=== PATIENT | male | born 2000 | race Hispanic/Latino ===

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

== ENCOUNTER 2020-02-28 16:16 | Emergency (ER) | payer OTHER ==
--- OUTSIDE RECORDS SUMMARY | 2020-02-28 16:17 | XMS REPORT | Continuity of Care Document ---
:2000 Author Organization [facility] t Address [address] [place] [address] Care Team Providers Name Role Phone Sabiha [...] Date/Time Type Type Clinicians Facility Department ID 2019-08-23 2019-08-23 Telephone PATT Landis [id number] [id number] 00:00:00 00:00:00 Silvano Coleman [id number] [facility] [id number] [facility] [id number] BLDG. 144 2019-08-22 2019-08-22 Nurse Sabiha VAMARCO [id number] 00:00:00 00:00:00 Triage Silvano HILARIO [id number] [facility] [id number] 144 2019-08-21 2019-08-21 Refill PATT Landis [id number] 00:00:00 00:00:00 Silvano Coleman [id number] [facility] [id number] [facility] [phone] BLDG. 144 2019-08-19 2019-08-19 Nurse IVONNE Estevez [id number] 00:00:00 00:00:00 Triage Madyson PRASAD [id number] [facility] [id number] 2019-08-18 2019-08-18 Hospital Liane Landis [id number] 05:28:51 10:33:00 Encounter Silvano Prasad [id number] [facility] [id number] 2019-08-18 2019-08-18 Orders Doctor IVONNE [id number] 00:00:00 00:00:00 Only UnassignedOSMAR [id number] [facility] [id number] 2019-08-16 2019-08-16 Laboratory Only, [facility] [id number] 14:44:03 14:59:03 Only Test [place] [id number] [place] [id number] [facility] [id number] [address] 2019-08-02 2019-08-02 Telephone Sabiha VAMARCO [id number] 00:00:00 00:00:00 Silvano HILARIO [id number] [facility] [id number] 144 Results This patient has no known results.
[2020-02-28] MEDS ORDERED: metroNIDAZOLE 500 MG TABLET ONE (19:57)
[2020-02-28] MEDS ORDERED: AZITHROMYCIN 250 MG TAB ONE (19:57)
[2020-02-28] MEDS ORDERED: CEFTRIAXONE 250 MG/VIAL ONE (19:58)
[2020-02-28] MEDS ORDERED: WATER FOR INJ,STERILE 10 ML ONE (19:58)
--- NOTE | 2020-02-28 20:36 | ER ---
Nurse's Notes [facility] Name: Rodo Nielson Age: 19 yrs Sex: Male : 2000 Arrival Date: 02/28/2020 Time: 16:18 Bed 23 Private MD: Diagnosis: Groin Pain;Sexually Transmitted Disease Exposure Presentation: 02/27 16:26 Chief complaint: Patient states: I wanted to get checked for STD, Chlamydia. I got L ca1 inguinal pain, LLQ pain. Denies burning with urination, urgency and frequency. Denies penile discharge. The person I had sex with told me she had Chlamydia months ago, I don't know if she has it now. And my throat on the R side is also hurting and itching, but I had m tonsils removed already. Denies fever. Coronavirus screen: Client denies travel out of the [place] in the last 14 days. At this time, the client does not indicate any symptoms associated with coronavirus-19. Ebola Screen: Patient negative for fever greater than or equal to 101.5 degrees Fahrenheit, and additional compatible Ebola Virus Disease symptoms Patient denies exposure to infectious person. Patient denies travel to an Ebola-affected area in the 21 days before illness onset. No symptoms or risks identified at this time. Initial Sepsis Screen: Does the patient meet any 2 criteria? No. Patient's initial sepsis screen is negative. Does the patient have a suspected source of infection? No. Patient's initial sepsis screen is negative. Risk Assessment: Do you want to hurt yourself or someone else? Patient reports no desire to harm self or others. Onset of symptoms was February 28, 2020. 16:26 Method Of Arrival: Ambulatory ca1 16:26 Acuity: JESUS 4 ca1 Triage Assessment: 19:40 General: Appears in no apparent distress. Behavior is calm, cooperative. Pain: Denies dm5 pain. Neuro: Level of Consciousness is awake, alert, obeys commands, Oriented to person, place, time, situation. Cardiovascular: No deficits noted. Respiratory: No deficits noted. GI: No deficits noted. No signs and/or symptoms were reported involving the gastrointestinal system. : Reports concern of STD. Derm: Skin is pink, warm \T\ dry. Historical: - Allergies: 16:33 No Known Allergies; ca1 - Home Meds: 16:33 None [Active]; ca1 - PMHx: 16:33 seasonal allergies; ca1 - PSHx: 16:33 Tonsillectomy; ca1 - Immunization history:: Adult Immunizations up to date, Flu vaccine is not up to date. - Social history:: Smoking status: Reported history of juuling and/or vaping. Smoking status: Patient uses street drugs, marijuana. Screenin:00 Abuse screen: Denies threats or abuse. Denies injuries from another. Nutritional dm5 screening: No deficits noted. Tuberculosis screening: No symptoms or risk factors identified. Fall Risk None identified. Assessment: 20:00 Reassessment: Patient appears in no apparent distress at this time. Patient and/or dm5 family updated on plan of care and expected duration. Pain level reassessed. Patient is alert, oriented x 3, equal unlabored respirations, skin warm/dry/pink. Vital Signs: 16:26 BP 114 / 79; Pulse 79; Resp 18 S; Temp 97.3(TE); Pulse Ox 100% on R/A; Weight 66.68 kg ca1 (R); Height 6 ft. 1 in. (185.42 cm) (R); Pain 5/10; 16:26 Body Mass Index 19.39 (66.68 kg, 185.42 cm) ca1 ED Course: 16:18 Patient arrived in ED. ag5 16:32 Triage completed. ca1 16:33 Arm band placed on right wrist. ca1 19:21 Raheem Henry PA is PHCP. [facility] 19:21 Suman Frazier MD is Attending Physician. [facility] 19:37 Maddie Mancuso, RN is Primary Nurse. dm5 20:00 Patient has correct armband on for positive identification. dm5 20:00 No provider procedures requiring assistance completed. Patient did not have IV access dm5 during this emergency room visit. Administered Medications: 19:46 Drug: Flagyl 2 grams Route: PO; dm5 20:15 Follow up: Response: No adverse reaction dm5 19:51 Drug: AZITHromycin 1 grams Route: PO; dm5 21:50 Follow up: Response: No adverse reaction dm5 20:02 Drug: Rocephin (cefTRIAXone) 250 mg Route: IM; Site: left gluteus; dm5 20:30 Follow up: Response: No adverse reaction dm5 Outcome: 20:35 Discharge ordered by MD. hidalgo 20:54 Patient left the ED. arin 20:55 Discharged to home ambulatory. staci5 20:55 Condition: good 20:55 Discharge instructions given to patient, Instructed on discharge instructions, follow up and referral plans. safe sex practices, Demonstrated understanding of instructions, follow-up care. Signatures: Maddie Mancuso, RN RN [email or web address] Raheem Henry PA PA jmm Acob, Cheryl RN SIGRID [facility] Bower [facility]
--- NOTE | 2020-02-28 20:36 | EDPHYS ---
Physician Documentation [facility] Name: Rodo Nielson Age: 19 yrs Sex: Male : 2000 Arrival Date: 02/28/2020 Time: 16:18 Bed 23 Private MD: ED Physician Suman Frazier HPI: 02/27 19:28 This 19 yrs old Male presents to ER via Ambulatory with complaints of Possible jmm STD. 19:28 The patient presents with tenderness, that is mild, of the left inguinal area. Onset: jmm The symptoms/episode began/occurred gradually. Modifying factors: The symptoms are alleviated by nothing, the symptoms are aggravated by nothing. This is a 19 year old male with no chronic medical conditions that presents to the ED with complaints of left groin pain beginning approx 3 days ago. Denies scrotal pain, discharge of dysuria. Patient states having intercourse with someone recently diagnosed with chlamydia. Historical: - Allergies: 16:33 No Known Allergies; ca1 - Home Meds: 16:33 None [Active]; ca1 - PMHx: 16:33 seasonal allergies; ca1 - PSHx: 16:33 Tonsillectomy; ca1 - Immunization history:: Adult Immunizations up to date, Flu vaccine is not up to date. - Social history:: Smoking status: Reported history of juuling and/or vaping. Smoking status: Patient uses street drugs, marijuana. ROS: 19:28 Constitutional: Negative for fever, chills, and weight loss, Cardiovascular: Negative jmm for chest pain, palpitations, and edema, Respiratory: Negative for shortness of breath, cough, wheezing, and pleuritic chest pain. 19:28 Back: Negative for injury and pain. 19:28 MS/Extremity: Negative for injury and deformity, Skin: Negative for injury, rash, and discoloration, Neuro: Negative for headache, weakness, numbness, tingling, and seizure, Psych: Negative for depression, anxiety, suicide ideation, homicidal ideation, and hallucinations. 19:28 Abdomen/GI: Positive for groin pain. 19:28 : Positive for groin pain. 19:28 All other systems are negative. Exam: 19:28 Constitutional: This is a well developed, well nourished patient who is awake, alert, jmm and in no acute distress. Head/Face: atraumatic. Eyes: EOMI, no conjunctival erythema appreciated ENT: Moist Mucus Membranes Neck: Trachea midline, Supple Chest/axilla: Normal chest wall appearance and motion. Cardiovascular: Regular rate and rhythm. No edema appreciated Respiratory: Normal respirations, no respiratory distress appreciated 19:28 Skin: General appearance color normal MS/ Extremity: Moves all extremities, no obvious deformities appreciated, no edema noted to the lower extremities Neuro: Awake and alert, normal gait Psych: Behavior is normal, Mood is normal, Patient is cooperative and pleasant 19:28 Abdomen/GI: Inspection: abdomen appears normal, Bowel sounds: normal, Palpation: abdomen is soft and non-tender, in all quadrants. 19:28 : Male external genitalia: normal, no abrasion, no discharge, no erythema, no injury, no swelling, no tenderness, no evidence of ulceration, Sexual behavior: the patient is sexually active. Vital Signs: 16:26 BP 114 / 79; Pulse 79; Resp 18 S; Temp 97.3(TE); Pulse Ox 100% on R/A; Weight 66.68 kg ca1 (R); Height 6 ft. 1 in. (185.42 cm) (R); Pain 5/10; 16:26 Body Mass Index 19.39 (66.68 kg, 185.42 cm) ca1 MDM: 19:33 Patient medically screened. gwen 20:04 Data reviewed: vital signs, nurses notes. Counseling: I had a detailed discussion with gwen the patient and/or guardian regarding: the historical points, exam findings, and any diagnostic results supporting the discharge/admit diagnosis, the need for outpatient follow up, to return to the emergency department if symptoms worsen or persist or if there are any questions or concerns that arise at home. 12 19:27 Order name: Urine Dipstick--Ancillary (enter results) ds4 02/27 20:07 Order name: GC Probe dm5 Administered Medications: 19:46 Drug: Flagyl 2 grams Route: PO; dm5 20:15 Follow up: Response: No adverse reaction dm5 19:51 Drug: AZITHromycin 1 grams Route: PO; dm5 21:50 Follow up: Response: No adverse reaction dm5 20:02 Drug: Rocephin (cefTRIAXone) 250 mg Route: IM; Site: left gluteus; dm5 20:30 Follow up: Response: No adverse reaction dm5 Disposition: 02/28 03:28 Co-signature as Attending Physician, Suman Frazier MD. [email or web address] Disposition: 02/28/20 20:35 Discharged to Home. Impression: Groin Pain, Sexually Transmitted Disease Exposure. - Condition is Stable. - Discharge Instructions: Chlamydia, Male, Sexually Transmitted Disease. - Medication Reconciliation Form, Thank You Letter, Antibiotic Education, Prescription Opioid Use form. - Follow up: Private Physician; When: 2 - 3 days; Reason: Recheck today's complaints, Continuance of care, Re-evaluation by your physician. Signatures: Dispatcher [employer] [facility] Maddie Mancuso, RN RN dm5 Raheem Henry PA PA jm Pamela Syed RN SIGRID ca1 Suman Frazier MD MD 7 Corrections: (The following items were deleted from the chart) 02/27 19:35 19:34 GC Culture+BA.LAB.BRZ ordered. [facility] 20:54 20:35 02/28/2020 20:35 Discharged to Home. Impression: Groin Pain; Sexually Transmitted dm5 Disease Exposure. Condition is Stable. Forms are Medication Reconciliation Form, Thank You Letter, Antibiotic Education, Prescription Opioid Use. Follow up: Private Physician; When: 2 - 3 days; Reason: Recheck today's complaints, Continuance of care, Re-evaluation by your physician. gwen
[2020-02-28 23:22] LABS: Urine Blood NEGATIVE (NEG); Urine Glucose NEGATIVE (NEG); Urine Protein NEGATIVE (NEG)
[2020-03-02 20:29] LABS: C.trachomatis RNA,TMA Detected (Not Detected)
== END 2020-02-28 20:54 | disposition home or self-care (01) ==
LOC: ER 16:16
DX: Z20.2 Contact with and (suspected) exposure to infections with a predominantly sexual mode of transmission (principal); Z87.891 Personal history of nicotine dependence
CPT/HCPCS: 81003; 87590; 87490; J0696; 96372; 99283

== ENCOUNTER 2020-08-30 17:37 | Emergency (ER) | payer OTHER ==
--- OUTSIDE RECORDS SUMMARY | 2020-08-30 17:41 | XMS REPORT | Continuity of Care Document ---
:2000 Author Organization [facility] t Address [address] [place] [address] Care Team Providers Name Role Phone Sabiha [...] 2019-08-23 2019-08-23 Telephone PATT Landis 1.2.840.114 [id number] 00:00:00 00:00:00 Silvano Coleman [id number] [facility] [id number] [facility] [id number] BLDG. 144 2019-08-22 2019-08-22 Nurse Sabiha [facility] [id number] 00:00:00 00:00:00 Triage Silvano HILARIO [id number] [facility] [id number] 144 2019-08-21 2019-08-21 Refill PATT Landis 1.2.840.114 [id number] 00:00:00 00:00:00 Silvano Coleman [id number] [facility] [id number] [facility] [id number] BLDG. 144 2019-08-19 2019-08-19 Nurse IVONNE Estevez [id number] 00:00:00 00:00:00 Triage Madyson PRASAD [id number] [facility] [id number] [id number] 2019-08-18 2019-08-18 Hospital Liane Landis [id number] 05:28:51 10:33:00 Encounter Silvano Prasad [id number] [facility] [id number] 2019-08-18 2019-08-18 Orders Doctor IVONNE 1.2.840.114 [id number] 00:00:00 00:00:00 Only UnassignedOSMAR [id number] [facility] 4.2.7.2.686 [id number] 2019-08-16 2019-08-16 Laboratory Only, [facility] 1.2.840.114 [id number] 14:44:03 14:59:03 Only Test [place] [id number] [place] [id number] [facility] [id number] [address] 2019-08-02 2019-08-02 Telephone Sabiha NVMARCO 1.2.840.114 [id number] 00:00:00 00:00:00 Silvano HILARIO [id number] [facility] [id number] 144 Results This patient has no known results.
[2020-08-30 18:00] LABS: Absolute Lymphocytes (CBC) 1.4 K/uL (0.7-4.9); Basophils % 0.3 % (0-1.3); Hematocrit 39.3 % (39.6-49.0); Lymphocytes % 19.5 % (15.3-44.8); MPV 7.4 fL (7.6-11.3); RBC Red Blood Cell Count 4.83 M/uL (4.33-5.43)
[2020-08-30 18:15] LABS: Protime INR 1.07
[2020-08-30] MEDS ORDERED: NA CHLORIDE 0.9% 1,000 ML ONE (18:17)
[2020-08-30 18:23] LABS: ALT/SGPT 14 U/L (12-78); AST/SGOT 16 U/L (15-37); Alkaline Phosphatase 78 U/L (45-117); BUN Blood Urea Nitrogen 11 mg/dL (7-18); Bicarbonate 23 mmol/L (21-32); Bilirubin Direct 0.2 mg/dL (0-0.2); Bilirubin Total 0.5 mg/dL (0.2-1.0); Glucose Level 95 mg/dL (74-106); Potassium 3.5 mmol/L (3.5-5.1); Protein, Total 7.4 g/dL (6.4-8.2); Sodium Level 144 mmol/L (136-145)
[2020-08-30 19:28] LABS: Urine Blood Negative (Negative); Urine Glucose Negative (Negative); Urine Protein Trace (Negative); Urine pH 8.5 (5.0-7.0)
[2020-08-30] MEDS ORDERED: ACETAMINOPHEN 325 MG TABLET ONE (20:09)
[2020-08-30 20:23] LABS: Barbiturates NEGATIVE (NEGATIVE); Benzodiazepines POSITIVE (NEGATIVE); Cocaine POSITIVE (NEGATIVE); METHAMPHETAM NEGATIVE (NEGATIVE); Methadone NEGATIVE (NEGATIVE); Opiates NEGATIVE (NEGATIVE); Phencyclidine NEGATIVE (NEGATIVE); THC Cannibis POSITIVE (NEGATIVE)
--- NOTE | 2020-08-30 22:07 | ER ---
Nurse's Notes [facility] Name: Rodo Nielson Age: 20 yrs Sex: Male : 2000 Arrival Date: 08/30/2020 Time: 17:43 Bed 14 Private MD: Diagnosis: Drug Abuse Presentation: 08/30 17:43 Chief complaint: EMS states: Called out for unresponsive person. Upon arrival, patient ss was unresponsive, but upon placing an NPA, pt became more aroused and is now stating, "I'm good I'm good. I don't want to be here.". Pt appears drowsy. Admits to taking 1 unknown tablet at 1530 today. Friends at scene state that patient "usually" takes Xanax and Percocet recreationally. Smells of marijuana. Coronavirus screen: Client denies travel out of the [place] in the last 14 days. Ebola Screen: Patient denies exposure to infectious person. Patient denies travel to an Ebola-affected area in the 21 days before illness onset. Initial Sepsis Screen: Does the patient meet any 2 criteria? No. Patient's initial sepsis screen is negative. Does the patient have a suspected source of infection? No. Patient's initial sepsis screen is negative. Risk Assessment: Do you want to hurt yourself or someone else? Patient reports no desire to harm self or others. Onset of symptoms was August 30, 2020. 17:43 Method Of Arrival: EMS: [facility] 17:43 Acuity: JESUS 2 ss Historical: - Allergies: 17:47 No Known Allergies; ss - Home Meds: 17:47 None [Active]; ss - PMHx: 17:47 seasonal allergies; ss - PSHx: 17:47 Tonsillectomy; ss - Immunization history:: Adult Immunizations unknown. - Social history:: Smoking status: unknown. Screenin:53 Abuse screen: Denies threats or abuse. Nutritional screening: No deficits noted. ph Tuberculosis screening: No symptoms or risk factors identified. Fall Risk No fall in past 12 months (0 pts). No secondary diagnosis (0 pts). IV access (20 points). Ambulatory Aid- None/Bed Rest/Nurse Assist (0 pts). Gait- Normal/Bed Rest/Wheelchair (0 pts) Mental Status- Oriented to own ability (0 pts). Total Goss Fall Scale indicates No Risk (0-24 pts). Assessment: 17:52 General: Appears distressed, uncomfortable, Behavior is anxious, crying. Pain: ph Complains of pain in head Pain currently is 10 out of 10 on a pain scale. Noted to be crying. Neuro: Level of Consciousness is awake, alert, obeys commands, Oriented to person, place, time, situation. Cardiovascular: Patient's skin is warm and dry. Respiratory: Airway is patent Respiratory effort is even, unlabored, Respiratory pattern is tachypnea. GI: No signs and/or symptoms were reported involving the gastrointestinal system. : No signs and/or symptoms were reported regarding the genitourinary system. EENT: No signs and/or symptoms were reported regarding the EENT system. Derm: Skin is intact, is healthy with good turgor. Musculoskeletal: Circulation, motion, and sensation intact. 18:51 Reassessment: No changes from previously documented assessment. Patient and/or family vg1 updated on plan of care and expected duration. Pain level reassessed. Patient is alert, oriented x 3, equal unlabored respirations, skin warm/dry/pink. Parent at bedside. 19:39 Reassessment: Patient appears in no apparent distress at this time. No changes from vg1 previously documented assessment. Patient and/or family updated on plan of care and expected duration. Pain level reassessed. Patient is alert, oriented x 3, equal unlabored respirations, skin warm/dry/pink. 20:36 Reassessment: Patient appears in no apparent distress at this time. Patient and/or vg1 family updated on plan of care and expected duration. Pain level reassessed. Patient is alert, oriented x 3, equal unlabored respirations, skin warm/dry/pink. 21:58 Reassessment: Patient appears in no apparent distress at this time. Patient and/or vg1 family updated on plan of care and expected duration. Pain level reassessed. Patient is alert, oriented x 3, equal unlabored respirations, skin warm/dry/pink. Ambulated Pt around pod; pt tolerated well, denied dizziness. Patient states feeling better. Overdose: 17:54 [place] Suicide Severity Screening: "In the past month, have you wished you were ph or wished you could go to sleep and not wake up?" Patient responds "no." "In the past month, have you actually had any thoughts of killing yourself?" Patient responds "no.". Vital Signs: 17:43 BP 165 / 139; Pulse 96; Resp 22; Temp 99.4(O); Pulse Ox 100% on R/A; Weight 65.77 kg; Height 6 ft. 1 in. (185.42 cm); Pain 10/10; 17:53 BP 143 / 71; Pulse 90; Resp 24; Pulse Ox 100% on R/A; ph 18:52 BP 113 / 70; Pulse 80; Resp 16; Pulse Ox 97% on R/A; vg1 19:40 BP 112 / 80; Pulse 82; Resp 16; Pulse Ox 98% ; vg1 20:00 BP 109 / 53; Pulse 79; Resp 20; Pulse Ox 100% on R/A; vg1 21:07 BP 108 / 67; Pulse 70; Resp 14; Pulse Ox 100% on R/A; vg1 21:59 BP 111 / 60; Pulse 70; Resp 14; Pulse Ox 100% ; vg1 17:43 Body Mass Index 19.13 (65.77 kg, 185.42 cm) ED Course: 17:43 Patient arrived in ED. ss 17:46 Raheem Henry PA is PHCP. [facility] 17:46 Bud Carmona MD is Attending Physician. [facility] 17:47 Triage completed. ss 17:47 Arm band placed on right wrist. ss 17:50 Laura Perez, RN is Primary Nurse. ph 17:54 Patient has correct armband on for positive identification. Placed in gown. Bed in low ph position. Call light in reach. Side rails up X2. 17:55 Maintain EMS IV. Dressing intact. Good blood return noted. Site clean \\T\\ dry. Gauge \\T\\ ph site: 18 Left AC. 18:48 Yamel Dallas, RN is Primary Nurse. vg1 22:12 No provider procedures requiring assistance completed. IV discontinued, intact, vg1 bleeding controlled, No redness/swelling at site. Pressure dressing applied. Administered Medications: 18:02 Drug: NS 0.9% 1000 ml Route: IV; Rate: 1 bolus; Site: left antecubital; ph 18:51 Follow up: IV Status: Completed infusion; IV Intake: 1000ml vg1 19:52 Drug: Tylenol 650 mg Route: PO; vg1 22:13 Follow up: Response: No adverse reaction; Pain is decreased vg1 Intake: 18:51 IV: 1000ml; Total: 1000ml. vg1 Outcome: 22:06 Discharge ordered by . gwen 22:12 Discharged to home ambulatory, with family. vg1 22:12 Condition: stable 22:12 Discharge instructions given to patient, Instructed on discharge instructions, follow up and referral plans. Demonstrated understanding of instructions, follow-up care. 22:12 Patient left the ED. vg1 Signatures: Raheem Henry PA PA jmm Smirch, Shelby, SIGRID RN ss Laura Perez RN RN Yamel Dallas RN RN vg1
--- NOTE | 2020-08-30 22:07 | EDPHYS ---
Physician Documentation [facility] Name: Rodo Nielson Age: 20 yrs Sex: Male : 2000 Arrival Date: 08/30/2020 Time: 17:43 Bed 14 Private MD: ED Physician Bud Carmona HPI: 08/30 17:47 This 20 yrs old Male presents to ER via EMS with complaints of Drug Abuse. jmm 17:47 The patient presents to the emergency department with a possible overdose. Associated jmm signs and symptoms: Pertinent positives: loss of consciousness. It is unknown whether or not the patient has had similar symptoms in the past. This is a 20 year old male with no chronic medical conditions that presents to the ED whom arrived ems after a call for ams. Patient admits to ingesting drugs recreationally . Historical: - Allergies: 17:47 No Known Allergies; ss - Home Meds: 17:47 None [Active]; ss - PMHx: 17:47 seasonal allergies; ss - PSHx: 17:47 Tonsillectomy; ss - Immunization history:: Adult Immunizations unknown. - Social history:: Smoking status: unknown. ROS: 17:47 Constitutional: Negative for fever, chills, and weight loss, Cardiovascular: Negative jmm for chest pain, palpitations, and edema, Respiratory: Negative for shortness of breath, cough, wheezing, and pleuritic chest pain, Abdomen/GI: Negative for abdominal pain, nausea, vomiting, diarrhea, and constipation. 17:47 Neuro: Positive for altered mental status. 17:47 All other systems are negative. Exam: 17:47 Head/Face: atraumatic. Eyes: EOMI, no conjunctival erythema appreciated ENT: Moist jmm Mucus Membranes Neck: Trachea midline, Supple Chest/axilla: Normal chest wall appearance and motion. Cardiovascular: Regular rate and rhythm. No edema appreciated Respiratory: Normal respirations, no respiratory distress appreciated Abdomen/GI: Non distended, soft Back: Normal ROM Skin: General appearance color normal MS/ Extremity: Moves all extremities, no obvious deformities appreciated, no edema noted to the lower extremities Neuro: Awake and alert, normal gait Psych: Behavior is normal, Mood is normal, Patient is cooperative and pleasant 17:47 Constitutional: The patient appears alert, awake, anxious. Vital Signs: 17:43 BP 165 / 139; Pulse 96; Resp 22; Temp 99.4(O); Pulse Ox 100% on R/A; Weight 65.77 kg; ss Height 6 ft. 1 in. (185.42 cm); Pain 10/10; 17:53 BP 143 / 71; Pulse 90; Resp 24; Pulse Ox 100% on R/A; ph 18:52 BP 113 / 70; Pulse 80; Resp 16; Pulse Ox 97% on R/A; vg1 19:40 BP 112 / 80; Pulse 82; Resp 16; Pulse Ox 98% ; vg1 20:00 BP 109 / 53; Pulse 79; Resp 20; Pulse Ox 100% on R/A; vg1 21:07 BP 108 / 67; Pulse 70; Resp 14; Pulse Ox 100% on R/A; vg1 21:59 BP 111 / 60; Pulse 70; Resp 14; Pulse Ox 100% ; vg1 17:43 Body Mass Index 19.13 (65.77 kg, 185.42 cm) ss MDM: 17:48 Patient medically screened. gwen 22:05 Data reviewed: vital signs, nurses notes. Counseling: I had a detailed discussion with gwen the patient and/or guardian regarding: the historical points, exam findings, and any diagnostic results supporting the discharge/admit diagnosis, lab results, the need for outpatient follow up, to return to the emergency department if symptoms worsen or persist or if there are any questions or concerns that arise at home. ED course: Patient is alert and non toxic in appearance in the ED. No signs of resp distress. Patient tolerates PO in the ED and ambulates without difficulty. . 08/30 17:47 Order name: Acetaminophen; Complete Time: 19:34 [facility] 08/30 17:47 Order name: Basic Metabolic Panel; Complete Time: 19:34 [facility] 08/30 17:47 Order name: CBC with Diff; Complete Time: 19:34 [facility] 08/30 17:47 Order name: ETOH Level; Complete Time: 19:34 [facility] 08/30 17:47 Order name: Hepatic Function; Complete Time: 19:34 [facility] 08/30 17:47 Order name: PT-INR; Complete Time: 19:34 [facility] 08/30 17:47 Order name: Ptt, Activated; Complete Time: 19:34 [facility] 08/30 17:47 Order name: Salicylate; Complete Time: 19:34 [facility] 08/30 17:47 Order name: Urine Drug Screen; Complete Time: 20:28 [facility] 08/30 17:47 Order name: EKG; Complete Time: 17:48 [facility] 08/30 18:46 Order name: Diet Regular; Complete Time: 18:47 [facility]6 08/30 19:28 Order name: Urine Dipstick-Ancillary; Complete Time: 19:34 [facility] 08/30 17:47 Order name: EKG - Nurse/Tech; Complete Time: 17:47 [facility] 08/30 17:47 Order name: IV Saline Lock; Complete Time: 17:47 [facility] 08/30 17:47 Order name: Labs collected and sent; Complete Time: 17:47 [facility] 08/30 17:47 Order name: Suicide Screening ([facility]); Complete Time: 17:52 [facility] 08/30 17:47 Order name: Urine Dipstick-Ancillary (obtain specimen); Complete Time: 19:34 [facility] Administered Medications: 18:02 Drug: NS 0.9% 1000 ml Route: IV; Rate: 1 bolus; Site: left antecubital; ph 18:51 Follow up: IV Status: Completed infusion; IV Intake: 1000ml vg1 19:52 Drug: Tylenol 650 mg Route: PO; vg1 22:13 Follow up: Response: No adverse reaction; Pain is decreased vg1 Disposition: 08/31 08:07 Co-signature as Attending Physician, Bud Carmona MD I agree with the assessment and kdr plan of care. Disposition: 08/30/20 22:06 Discharged to Home. Impression: Drug Abuse. - Condition is Stable. - Discharge Instructions: Drug Overdose. - Medication Reconciliation Form, Thank You Letter, Antibiotic Education, Prescription Opioid Use form. - Follow up: Private Physician; When: 2 - 3 days; Reason: Recheck today's complaints, Continuance of care, Re-evaluation by your physician. Signatures: Dispatcher [employer] Bud Gongora MD MD kdr Mickail, Joel, PA PA Juliet Olvera, SIGRID RN ss Laura Perez RN RN ph Yamel Dallas, RN RN vg1 Corrections: (The following items were deleted from the chart) 08/30 22:12 22:06 08/30/2020 22:06 Discharged to Home. Impression: Drug Abuse. Condition is Stable. vg1 Forms are Medication Reconciliation Form, Thank You Letter, Antibiotic Education, Prescription Opioid Use. Follow up: Private Physician; When: 2 - 3 days; Reason: Recheck today's complaints, Continuance of care, Re-evaluation by your physician. gwen
[2020-08-30 22:42] VITALS: TEMP 99.4
[2020-08-30 22:48] VITALS: O2SAT 100
[2020-08-30 22:51] VITALS: BP 111/60
== END 2020-08-30 22:12 | disposition home or self-care (01) ==
LOC: ER 17:37
DX: F19.10 Other psychoactive substance abuse, uncomplicated (principal)
CPT/HCPCS: 85025; 80048; 36415; 80320; 80329 ×2; 85610; 80076; 80307 ×8; 85730; 81003; J7030; 93005; 96360; 99283